=== PATIENT | female | born 1965 | race Caucasian/White ===

== ENCOUNTER 2018-07-04 06:30 | Day surgery (SDC) | payer OTHER ==
[~2018-07-04 06:30] MED LIST: GABAPENTIN400 MG PO; HYZAAR 100-251 EACH PO; NORVASC10 MG PO; SYNTHROID88 MCG PO
[2018-07-04] MEDS ORDERED: NAPROXEN SODIU550 MG PO (14:04)
== END 2018-07-04 16:02 | disposition home or self-care (01) ==
LOC: CIR.AMB 06:30
DX: N84.0 Polyp of corpus uteri (principal)